=== PATIENT | female | born 1930 | race Caucasian/White ===

== ENCOUNTER 2016-08-14 10:55 | Emergency (ER) | payer MEDICARE, OTHER ==
[~2016-08-14] VITALS: Ht 152.4 cm; Wt 56.8 kg
[~2016-08-14 10:55] MED LIST: ATOR10TA66; FLUD0.1T; HYDR-4003 PO; IBUP-1827 PO; LIDO700A6 TP; OMEP20CA11; PYRI60TA
[2016-08-14 11:02] VITALS: BP 123/70; PULSE 62; RESP 15; O2SAT 98
[2016-08-14 11:16] LABS: BASOPHILS % (AUTO) 0.2 % (0-3); EOSINOPHILS % (AUTO) 1.7 % (0-5); MONOCYTES % (AUTO) 12.2 % (4-12); Mean Corpuscular Hemoglobin 30.3 pg (27.0-35.0); Mean Corpuscular Volume 91.8 fL (81-100); NEUTROPHILS % (AUTO) 52.2 % (40-74); Platelet Count 211 bil/L (150-400)
--- NOTE | 2016-08-14 11:20 | ED.REPORT ---
HPI-Chest Pain 40 and Over Date of Service August 14, 2016 ED Provider: Blayne Ortega MD A healthy 85 year old female with no history of smoking or drinking presents to the ER accompanied by her daughter due to several days of weakness and fatigue, worsening this morning upon awakening. She states that she has been ill for the past three days with frequent, watery diarrhea, but awakened today feeling markedly worse. Patient suspects that her symptoms are due to dehydration secondary to diarrhea. Daughter became concerned this morning when she went to check on the patient and noted that she was quite pale, and too weak and fatigued to get out of bed. Patient also reports diaphoresis, and intermittent mild chest heaviness with occasional episodes of pain for the past week. She denies fever, cough, and any significant cardiac history. Nursing Notes Stated Complaint: CHEST PAIN Chief Complaint: Chest Pain Nursing Notes Reviewed: Yes Allergies: Coded Allergies: Penicillins (Verified Allergy, Unknown, 10/27/15) Uncoded Allergies: PENICILLIN (Allergy, Unknown, 09/14/15) Scheduled Lidocaine (Lidoderm) 700 Mg Adh..patch 1 PATCH TP UD Scheduled PRN Hydrocodone-Acetaminophen 5-325 mg (Hydrocodone-Acetaminophen 5-325 mg) 1 Each Tablet 1 TABLET PO Q4H PRN PRN For Pain Ibuprofen (Ibuprofen) 600 Mg Tablet 600 MG PO QID PRN PRN For Pain Miscellaneous Medications Atorvastatin Calcium (Atorvastatin Calcium) 10 Mg Tablet Fludrocortisone Acetate (Fludrocortisone Acetate) 0.1 Mg Tablet Omeprazole (Omeprazole) 20 Mg Capsule. Pyridostigmine [place] (Pyridostigmine [place]) 60 Mg Tablet General Time Seen by MD: 11:17 Chief Complaint Chest pain Hx Obtained From: Patient Arrived By: Walk-in Sudden in Onset?: No Onset Occurred: 1 - 4 hours ago Symptom Duration: Since onset Location: : Substernal Quality: Heaviness Radiation: : Does not radiate Severity: Current: No pain currently Severity: Maximum: Mild Associated with: Denies: Cough, non-productive, Cough, productive, Fever Pertinent Negative: Pt denies other symptoms Similar Sx Previous: No Past Medical History Past Medical History Chronic back pain Hypotension Denies: COPD, Cancer, Congestive heart failure, Coronary artery disease, Diabetes mellitus, Stroke Past Surgical History Back surgery Family History noncontributory Smoking History Never Smoker Social History Alcohol Use: Denies alcohol use Drug Use: Denies drug use Other Social History: Good social support, Local resident Ambulatory Status Independent Review of Systems Constitutional: Reports: Fatigue, Malaise, Weakness - generalized, Denies: Fever Respiratory: Denies: Non-productive cough, Shortness of breath Cardiovascular: Reports: Chest pain GI: Reports: Diarrhea, Denies: Nausea, Vomiting Complete sys rev & neg: except as marked. Physical Exam Initial Vital Signs Vital Signs (First) Date Time Temp Pulse Resp B/P Pulse Ox O2 Delivery O2 Flow Rate FiO2 08/14/16 11:02 36.4 62 15 123/70 98 Room Air Initial VS: Reviewed Head / Eyes: Atraumatic, Normocephalic Neck: Supple, Non-tender, Full range of motion Extremities: Vascular intact, Neuro intact, No swelling, No tenderness Skin: Warm, Dry, No cyanosis Neurologic: Alert, Oriented, Nonfocal Psychiatric: Mood/affect normal, Behavior normal, Normal thought content General/Constitutional: Awake, Alert, Well appearing, Well developed, Well nourished Respiratory / Chest: Breath sounds NL, Breath sounds = bilat, No respiratory distress, No rales, No rhonchi, No wheezing, No stridor, No chest tenderness Cardiovascular: Heart rate NL, Regular rhythm, Heart sounds NL, No murmurs, Peripheral circulation NL, Pulses = bilaterally, No gross BP differential Abdomen: Soft, Non-tender, No guarding, No rebound, No distention Interpretation & Diagnostics Lab Results Interpretation Result Diagram: 08/14/16 1112 08/14/16 1112 Test 08/14/16 11:12 08/14/16 11:53 White Blood Count 6.6th/mm3 (3.8-10.1) Red Blood Count 4.66mil/mm3 (3.90-5.20) Hemoglobin 14.1g/dL (12.0-15.6) Hematocrit 42.8% (35.0-46.0) Mean Corpuscular Volume 91.8fL (81-100) Mean Corpuscular Hemoglobin 30.3pg (27.0-35.0) Mean Corpuscular Hemoglobin Concent 32.9% (32.0-37.0) Red Cell Distribution Width 13.8% (12.3-15.4) Platelet Count 211bil/L (150-400) Neutrophils (%) (Auto) 52.2% (40-74) Lymphocytes (%) (Auto) 33.7% (14-46) Monocytes (%) (Auto) 12.2% (4-12) Eosinophils (%) (Auto) 1.7% (0-5) Basophils (%) (Auto) 0.2% (0-3) D-Dimer 1.93mg/L FEU (<0.50) Sodium Level 141mEq/L (134-144) Potassium Level 4.2mEq/L (3.5-5.2) Chloride Level 103mEq/L (97-108) Carbon Dioxide Level 24mmol/L (18-29) Blood Urea Nitrogen 12mg/dL (8-27) Creatinine 0.57mg/dL (0.57-1.00) Estimat Glomerular Filtration Rate 145mL/min (>59) Glucose Level 97mg/dL (60-99) Calcium Level 9.9mg/dL (8.5-10.1) Magnesium Level 2.2mg/dL (1.6-2.6) Total Bilirubin 0.3mg/dL (0.0-1.2) Aspartate Amino Transf (AST/SGOT) 26U/L (0-50) Alanine Aminotransferase (ALT/SGPT) 16U/L (0-32) Alkaline Phosphatase 82U/L (25-165) Troponin T 0.010ug/L (0.0-0.011) Total Protein 7.6g/dL (6.4-8.4) Albumin 3.8g/dL (3.4-5.0) Urine Color Straw (YELLOW) Urine Appearance Hazy (CLEAR,HAZY) Urine pH 6.0 (5.0-8.0) Urine Specific [place] 1.005 (1.003-1.035) Urine Protein Negativemg/dL (NEG,TRACE) Urine Glucose (UA) Negativemg/dL (NEGATIVE) Urine Ketones Negativemg/dL (NEGATIVE) Urine Occult Blood Trace (NEGATIVE) Urine Nitrite Negative (NEGATIVE) Urine Bilirubin Negative (NEGATIVE) Urine Urobilinogen Normalmg/dL (NORMAL) Urine Leukocyte Esterase Negative (NEGATIVE) Urine RBC 3-10/hpf (0-2) Urine WBC 0-5/hpf (0-5) Urine Epithelial Cells Occasional/hpf (NONE-MOD) Urine Crystals None seen (NONE SEEN) Urine Bacteria None/hpf (NONE-FEW) Urine Hyaline Casts None/lpf (NONE) Urine Granular Casts None seen (NONE SEEN) Urine Waxy Casts None seen (NONE SEEN) Urine Red Blood Cell Casts None seen (NONE SEEN) Urine White Blood Cell Casts None seen (NONE SEEN) Urine Mucus None seen (None Seen) Urine Trichomonas None seen (NONE SEEN) Urine Yeast None (NONE SEEN) Urinalysis Comment None Urine Culture Reflexed Not indicated ECG Interpretation ECG Interpretation: Sinus rhythm, rate 60 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 Ill-defined nodular opacity projecting in the left lung base, technically non-specific. Recommend followup with three-month interval PA and lateral chest radiograph (or alternatively at clinical discretion, noncontrast chest CT could be immediately performed) Dictated by: Stuart Diego M.D. on 08/14/2016 at 11:47 Approved by: Stuart Diego M.D. on 08/14/2016 at 11:49 View: Portable, 1 view Interpretation / Wet Read by: Interpret - Radiologist CT Chest Interpretation IMPRESSION: No evidence of pulmonary embolism. Chronic diffuse interstitial changes. No definite focal consolidation. Dictated by: Stuart Diego M.D. on 08/14/2016 at 12:34 Approved by: Stuart Diego M.D. on 08/14/2016 at 12:42 Study type: CT pulm angiogram Interpretation / Wet Read by: Interpret - Radiologist Re-Eval/Medical Decision Source of Hx: Old records Counseled Regarding: Diagnosis, Lab results Discharge & Departure Primary Impression: Non-cardiac chest pain Additional Impression: Dehydration Disposition: Home Discharge Condition All VS Reviewed: Yes Condition: Stable Patient Instructions: Chest Pain (ED), Dehydration (ED) Additional Instructions: I think your symptoms were probably related to dehydration associated with the diarrhea you had over the past few days. No other dangerous condition is identified. Over the next few days I recommend extra oral hydration especially with electrolyte-containing fluids. If you are feeling worse or if you faint please return to the emergency department. Otherwise follow-up with your primary care provider in the next week to assure resolution of these symptoms. Referrals: Max Carr MD (PCP) Scribe Attestation Portions of this note were transcribed by Edmundo Salomon. I, Dr. Ortega, personally performed the history, physical exam and medical decision-making; I reviewed and confirmed the accuracy of the information in the transcribed note. Signed by: Jorge Rapp, 08/14/2016 at *time* copies to: Max Carr MD, Kirk H MD August 14, 2016 11:20 EDMUNDO SALOMON August 14, 2016 11:29
[2016-08-14 11:28] LABS: TROPONIN T 0.01 ug/L (0.0-0.011)
[2016-08-14 11:39] LABS: Magnesium 2.2 mg/dL (1.6-2.6)
[2016-08-14 11:40] VITALS: BP 121/56; PULSE 56; RESP 20; O2SAT 98
[2016-08-14 11:45] VITALS: BP 123/75; PULSE 97; RESP 21; O2SAT 98
[2016-08-14] MEDS ORDERED: 0.9% Sodium Chloride 1,000 ML IV ONE (11:50)
--- NOTE | 2016-08-14 11:51 | DRSVH ---
PROCEDURE: X-RAY CHEST ONE VIEW, PORTABLE ([id number]) INDICATIONS: CHEST PAIN TECHNIQUE: One view of the chest was acquired. COMPARISON: [facility], CHEST 2VW, 07/12/2014, 11:43. [facility], [facility], XR [address] 2VW, 04/09/2016, 12:28. FINDINGS: Surgical changes and devices: None. Lungs and pleura: No pleural effusions or pneumothorax. Diffuse interstitial changes appear grossly stable. Ill-defined 1 cm nodular opacity projecting in the left lung base. It is unclear if this is p resent on a prior remote study dated 07/12/14 Mediastinum: Mediastinal contours appear normal. Heart size is normal. Bones and chest wall: No suspicious bony lesions. Overlying soft tissues appear unremarkable. Later al curvature of the spine IMPRESSION: No acute disease. Ill-defined nodular opacity projecting in the left lung base, technically non-speci fic. Recommend followup with three-month interval PA and lateral chest radiograph (or alternatively a t clinical discretion, noncontrast chest CT could be immediately performed) Dictated by: Stuart Diego M.D. on 08/14/2016 at 11:47 Approved by: Stuart Diego M.D. on 08/14/2016 at 11:49
[2016-08-14 12:16] LABS: APPEARANCE,URINE HAZY (CLEAR,HAZY); COLOR,URINE STRAW (YELLOW); OCCULT BLOOD,URINE TRACE (NEGATIVE); UROBILINOGEN,URINE NORMAL (NORMAL)
--- NOTE | 2016-08-14 12:43 | DRSVH ---
PROCEDURE: CT ANGIO CHEST PULMONARY EMBOLISM ([id number]) INDICATIONS: chest pain TECHNIQUE: After the administration of intravenous contrast, 2 mm thick sections acquired from the pulmonary api jose to the posterior costophrenic angles. 3-dimensional maximum intensity projection (MIP) coronal a nd sagittal reformats were then acquired through the thorax. For radiation dose reduction, the follo wing was used: automated exposure control, adjustment of mA and/or kV according to patient size. COMPARISON: [facility], CR, XR CHEST 2VW, 10/24/2015, 8:56. FINDINGS: Image quality: Excellent. Pulmonary arteries: Pulmonary arteries are normal in size, and demonstrate no intraluminal filling d efects to suggest central pulmonary embolism. Lungs and pleura: There is diffuse subpleural reticulation, scarring and interstitial changes. No pne umothorax or pleural effusion is seen. No definite focal consolidation identified. Central airways ap pear grossly patent. Mediastinum: Heart size is mildly enlarged, without pericardial effusion. No mediastinal or hilar a denopathy. Thoracic aorta is normal in caliber and enhancement. Esophagus is normal in caliber, wit hout hiatal hernia. Bones and chest wall: No suspicious bony lesions. Unchanged lower thoracic compression fracture sinc e prior radiograph dated 10/24/15. Thyroid gland is grossly unremarkable. No axillary or supraclavicu lar adenopathy. Abdomen: Visualized upper abdominal solid organs appear normal in the early arterial phase of enhanc ement. IMPRESSION: No evidence of pulmonary embolism. Chronic diffuse interstitial changes. No definite focal consolidation. Dictated by: Stuart Diego M.D. on 08/14/2016 at 12:34 Approved by: Stuart Diego M.D. on 08/14/2016 at 12:42
[2016-08-14 13:00] VITALS: BP 142/88; PULSE 53; RESP 17; O2SAT 100
[2016-08-14 13:06] VITALS: BP 144/88; PULSE 61; RESP 16; O2SAT 100
[2016-08-14 14:35] VITALS: BP 144/88; PULSE 61; RESP 16; O2SAT 100
== END 2016-08-14 14:36 | disposition home or self-care (01) ==
LOC: SED 10:55
DX: R07.89 Other chest pain (principal); E86.0 Dehydration; Z88.0 Allergy status to penicillin
CPT/HCPCS: 36415; 71010; 71275; 80053; 81000; 83735; 84484; 85025; 85378; 93005; 96360; 99285; J7030; Q9967

== ENCOUNTER 2016-12-17 09:00 | Emergency (ER) | payer MEDICARE, OTHER ==
[~2016-12-17] VITALS: Ht 152.4 cm; Wt 58.2 kg
[~2016-12-17 09:00] MED LIST changes: +LIDO700A10 TP; -LIDO700A6 TP
[2016-12-17 09:11] VITALS: BP 95/72; PULSE 66; RESP 16; O2SAT 98
[2016-12-17] MEDS ORDERED: FLUD0.1T PO (09:20)
[2016-12-17] MEDS ORDERED: SUMA25TA3 PO (09:20)
[2016-12-17] MEDS ORDERED: TIOT18CA3 IH (09:20)
[2016-12-17] MEDS ORDERED: PYRI60TA PO (09:20)
[2016-12-17] MEDS ORDERED: ASPI-973 PO (09:20)
[2016-12-17] MEDS ORDERED: ATRV10T PO (09:20)
[2016-12-17] MEDS ORDERED: RANI150C4 PO (09:20)
--- NOTE | 2016-12-17 09:27 | ED.REPORT ---
HPI-Chest Pain 40 and Over Date of Service Dec 17, 2016 ED Provider: Octavio Robertson DO Patient is an 86 year old female with a history of hypotension who presents to the ED complaining of intermittent sharp chest pain episodes over the past 6 months. The episodes have been worsening over the past month and today the patient began to feel lightheaded, short of breath and has a headache. The patient also reports swelling in her legs and intermittent chest palpitations. She states that she has a constant heaviness on her chest that makes her feel as though she needs to take a deep breath. Patient denies abdominal pain. Nursing Notes Stated Complaint: RAPID HEART RATE Chief Complaint: Dysrhythmia/Cardiac Nursing Notes Reviewed: Yes Allergies: Coded Allergies: Penicillins (Verified Allergy, Unknown, 12/17/16) Uncoded Allergies: PENICILLIN (Allergy, Unknown, 09/14/15) Scheduled Aspirin (Aspirin) 81 Mg Tablet 81 MG PO DAILY Atorvastatin (Lipitor) 10 Mg Tab 10 MG PO DAILY Fludrocortisone Acetate (Fludrocortisone Acetate) 0.1 Mg Tablet 0.1 MG PO QAM Pyridostigmine [place] (Pyridostigmine [place]) 60 Mg Tablet 60 MG PO QID Ranitidine (Ranitidine) 150 Mg Capsule 150 MG PO BID Tiotropium [place] (Spiriva) 18 Mcg Cap.w.dev 18 MCG IH DAILY Scheduled PRN Sumatriptan Succinate (Sumatriptan Succinate) 25 Mg Tablet 25 MG PO DAILY PRN PRN For Headache General Time Seen by MD: 09:23 Chief Complaint Chest pain Hx Obtained From: Patient Arrived By: Walk-in Sudden in Onset?: Yes Onset Occurred: 1 - 4 hours ago Symptom Duration: Since onset Location: : Substernal Quality: Heaviness, Painful, Sharp Severity: Current: No pain currently Severity: Maximum: Moderate Recent Healthcare: Recent doctor visit Similar Sx Previous: No Past Medical History Past Medical History Chronic back pain Hypotension Past Surgical History Back surgery Family History noncontributory Smoking History Never Smoker Social History Alcohol Use: Denies alcohol use Drug Use: Denies drug use Other Social History: Good social support, Local resident Ambulatory Status Independent Review of Systems Respiratory: Reports: Shortness of breath Cardiovascular: Reports: Chest pain, Palpitations GI: Denies: Abdominal pain Neurologic: Reports: Headache, Lightheaded Complete sys rev & neg: except as marked. Physical Exam Initial Vital Signs Vital Signs (First) Date Time Temp Pulse Resp B/P Pulse Ox O2 Delivery O2 Flow Rate FiO2 12/17/16 09:11 36.7 66 16 95/72 98 Room Air Initial VS: Reviewed General/Constitutional: Awake, Alert Respiratory / Chest: Atraumatic, Breath sounds NL, Breath sounds = bilat, No respiratory distress Cardiovascular: Heart rate NL, Regular rhythm, Heart sounds NL Abdomen: Atraumatic, Soft, Non-tender Neck: Atraumatic, Supple Neck Vascular: Positive: JVD mild Lower Extremity / Pelvis / MS: Atraumatic mild bilateral lower extremity edema Skin: Atraumatic, Color NL, No rash, Warm, Dry Neurologic: Oriented X3, Speech NL Head / Eyes: Atraumatic, Normocephalic Interpretation & Diagnostics Lab Results Interpretation Result Diagram: 12/17/16 1010 12/17/16 1010 Test 12/17/16 10:10 12/17/16 12:08 White Blood Count 7.0th/mm3 (3.8-10.1) Red Blood Count 4.58mil/mm3 (3.90-5.20) Hemoglobin 13.6g/dL (12.0-15.6) Hematocrit 41.3% (35.0-46.0) Mean Corpuscular Volume 90.2fL (81-100) Mean Corpuscular Hemoglobin 29.7pg (27.0-35.0) Mean Corpuscular Hemoglobin Concent 32.9% (32.0-37.0) Red Cell Distribution Width 13.4% (12.3-15.4) Platelet Count 203bil/L (150-400) Neutrophils (%) (Auto) 50.4% (40-74) Lymphocytes (%) (Auto) 27.3% (14-46) Monocytes (%) (Auto) 18.4% (4-12) Eosinophils (%) (Auto) 3.4% (0-5) Basophils (%) (Auto) 0.4% (0-3) D-Dimer 1.48mg/L FEU (<0.50) Sodium Level 142mEq/L (134-144) Potassium Level 4.4mEq/L (3.5-5.2) Chloride Level 103mEq/L (97-108) Carbon Dioxide Level 26mmol/L (18-29) Blood Urea Nitrogen 10mg/dL (8-27) Creatinine 0.57mg/dL (0.57-1.00) Estimat Glomerular Filtration Rate 145mL/min (>59) Glucose Level 96mg/dL (60-99) Calcium Level 9.9mg/dL (8.5-10.1) Magnesium Level 2.4mg/dL (1.6-2.6) Total Bilirubin 0.3mg/dL (0.0-1.2) Aspartate Amino Transf (AST/SGOT) 22U/L (0-50) Alanine Aminotransferase (ALT/SGPT) 14U/L (0-32) Alkaline Phosphatase 76U/L (25-165) Troponin T 0.010ug/L (0.0-0.011) Pro-B-Type Natriuretic Peptide 120.7pg/mL (0-738) Total Protein 7.4g/dL (6.4-8.4) Albumin 3.7g/dL (3.4-5.0) Hold Yen Top Tube Received (Received) Urine Color Straw (YELLOW) Urine Appearance Hazy (CLEAR,HAZY) Urine pH 7.0 (5.0-8.0) Urine Specific [place] 1.005 (1.003-1.035) Urine Protein Negativemg/dL (NEG,TRACE) Urine Glucose (UA) Negativemg/dL (NEGATIVE) Urine Ketones Negativemg/dL (NEGATIVE) Urine Occult Blood Negative (NEGATIVE) Urine Nitrite Negative (NEGATIVE) Urine Bilirubin Negative (NEGATIVE) Urine Urobilinogen Normalmg/dL (NORMAL) Urine Leukocyte Esterase Negative (NEGATIVE) Urine RBC 0-2/hpf (0-2) Urine WBC 0-5/hpf (0-5) Urine Epithelial Cells Occasional/hpf (NONE-MOD) Urine Crystals None seen (NONE SEEN) Urine Bacteria None/hpf (NONE-FEW) Urine Hyaline Casts None/lpf (NONE) Urine Granular Casts None seen (NONE SEEN) Urine Waxy Casts None seen (NONE SEEN) Urine Red Blood Cell Casts None seen (NONE SEEN) Urine White Blood Cell Casts None seen (NONE SEEN) Urine Mucus None seen (None Seen) Urine Trichomonas None seen (NONE SEEN) Urine Yeast None (NONE SEEN) Urinalysis Comment None Urine Culture Reflexed Not indicated ECG Interpretation Time: 12:03 Interpreted by: ED physician Normal ECG Interpretation: Normal rate (62), Normal sinus rhythm X-Ray Chest Interpretation Chest Xray Interpretation: IMPRESSION: Chronic mild interstitial prominence previously present, no acute disease. Source of chest pain is not seen. Dictated by: Marbin Beaulieu M.D. on 12/17/2016 at 10:12 Approved by: Marbin Beaulieu M.D. on 12/17/2016 at 10:17 Interpretation / Wet Read by: Interpret - Radiologist CT Chest Interpretation IMPRESSION: 1. No evidence of central pulmonary embolism. 2. 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 3. Enlarged mediastinal and hilar lymph nodes are nonspecific and may represent reactive changes secondary to interstitial lung disease but appear increased from the prior study. Followup is recommended to demonstrate stability. 4. Chronic interstitial changes redemonstrated bilaterally. Dictated by: Agustin Tinsley M.D. on 12/17/2016 at 13:47 Approved by: Agustin Tinsley M.D. on 12/17/2016 at 14:14 Study type: CT pulm angiogram Interpretation / Wet Read by: Interpret - Radiologist Re-Eval/Medical Decision Med Decision/Clinical Course Chest pain is transient lasting only a second or 2, does not sound typical of acute coronary syndrome, no evidence of heart failure, pneumonia, pulmonary embolism or acute IL. Patient is ambulatory at her normal baseline. No evidence of any life-threatening pathology. Prior visits are reviewed as well. Patient is agreeable to follow up with her primary care doctor in the next few days. Return precautions given. Time of Eval: 14:17 Re-Evaluation/Progress Note: Reviewed X-ray, labs and CT results. Plan for discharge. Patient understands and agrees to plan. All questions were addressed. Counseled Regarding: Diagnosis, Lab results, Need for follow-up, When/why to return to ED Discharge & Departure Primary Impression: Chest pain Chest pain type: unspecified Qualified Code: R07.9 - Chest pain, unspecified Additional Impression: Shortness of breath Disposition: Home Discharge Condition All VS Reviewed: Yes Condition: Stable Patient Instructions: Chest Pain (ED) Additional Instructions: Your chest X-ray, CT and labs were normal and reassuring. An immediately dangerous cause for your symptoms was not identified at this time. Follow up with your primary care physician next week. Return to the emergency department if you develop any new, concerning or worsening symptoms. Referrals: Max Carr MD (PCP) Scribe Attestation Portions of this note were transcribed by Ibeth Miller. I, Dr. Khadar Corcoran personally performed the history, physical exam and medical decision-making; I reviewed and confirmed the accuracy of the information in the transcribed note. Signed by: Jorge Ryder, 12/17/16 copies to: Max Carr MD, Timothy S DO Dec 17, 2016 09:27 Cari Miller Dec 17, 2016 09:56
[2016-12-17] MEDS ORDERED: 0.9% Sodium Chloride 500 ML IV ONE (09:50)
--- NOTE | 2016-12-17 10:20 | DRSVH ---
PROCEDURE: X-RAY CHEST ONE VIEW, PORTABLE ([id number]) INDICATIONS: chest pain TECHNIQUE: One view of the chest was acquired. COMPARISON: [facility], CT, CT CHEST WO CON, 11/19/2016, 12:36. [facility], CR, XR CHEST 1VW (PORTABLE), 08/14/2016, 11:18. [facility], CR, XR CHEST 2VW, 04/09/2016, 12:28. FINDINGS: Surgical changes and devices: None. Lungs and pleura: No pleural effusions or pneumothorax. Lungs are clear. Mediastinum: Mediastinal contours appear normal. Heart size is normal, and again noted is a small r adiodensity at the left ventricular margin border of the heart, seen by CT scanning 11/19/16 to repres ent a prominence of focal fat at that site. Bones and chest wall: No suspicious bony lesions. Overlying soft tissues appear unremarkable. IMPRESSION: Chronic mild interstitial prominence previously present, no acute disease. Source of phong st pain is not seen. Dictated by: Marbin Beaulieu M.D. on 12/17/2016 at 10:12 Approved by: Marbin Beaulieu M.D. on 12/17/2016 at 10:17
[2016-12-17 10:26] LABS: BASOPHILS % (AUTO) 0.4 % (0-3); EOSINOPHILS % (AUTO) 3.4 % (0-5); MONOCYTES % (AUTO) 18.4 % (4-12); Mean Corpuscular Hemoglobin 29.7 pg (27.0-35.0); Mean Corpuscular Volume 90.2 fL (81-100); NEUTROPHILS % (AUTO) 50.4 % (40-74); Platelet Count 203 bil/L (150-400)
[2016-12-17 11:34] LABS: Magnesium 2.4 mg/dL (1.6-2.6); TROPONIN T 0.01 ug/L (0.0-0.011)
[2016-12-17 12:05] VITALS: BP 146/81; PULSE 64; RESP 16; O2SAT 98
[2016-12-17 12:54] LABS: APPEARANCE,URINE HAZY (CLEAR,HAZY); COLOR,URINE STRAW (YELLOW); OCCULT BLOOD,URINE NEGATIVE (NEGATIVE); UROBILINOGEN,URINE NORMAL (NORMAL)
--- NOTE | 2016-12-17 14:16 | DRSVH ---
PROCEDURE: CT ANGIO CHEST PULMONARY EMBOLISM ([id number]) INDICATIONS: chest pain elevated ddimer TECHNIQUE: After the administration of intravenous contrast, 2 mm thick sections acquired from the pulmonary api jose to the posterior costophrenic angles. 3-dimensional maximum intensity projection (MIP) coronal a nd sagittal reformats were then acquired through the thorax. For radiation dose reduction, the follo wing was used: automated exposure control, adjustment of mA and/or kV according to patient size. COMPARISON: [facility], CT, CT CHEST WO CON, 11/19/2016, 12:36. [facility], CT, CT ANGIO CHEST PE, 08/14/2016, 12:03. FINDINGS: Image quality: There is motion artifact limiting evaluation. Pulmonary arteries: Pulmonary arteries are normal in size, and demonstrate no definite intraluminal filling defects to suggest central pulmonary embolism. Evaluation of distal subsegmental branches is slightly limited due to motion artifact. Lungs and pleura: There are chronic interstitial changes redemonstrated bilaterally with peripheral subpleural reticular interstitial opacities and linear scarring. There are some bilateral groundglas s opacities. Evaluation is limited due to motion artifact. No focal consolidation. No pleural effus ions or pneumothorax. Central and peripheral airways are patent. Mediastinum: Heart size is normal, without pericardial effusion. There are multiple enlarged medias tinal and hilar lymph nodes including a subcarinal node measuring up to 1.2 cm and the right hilar no andres measuring up to 1.4 cm. There is aneurysmal dilatation of the thoracic aorta, with the ascending aorta measuring up to 4.1 cm, and the aortic arch measuring up to 3.0 cm, the proximal descending ao rta measuring up to 3.2 cm, and the distal descending aorta at the diaphragmatic hiatus measuring up to 2.8 cm. The visualized suprarenal abdominal aorta is mildly dilated, measuring up to 2.1 cm. Eso phagus is normal in caliber, with a small hiatal hernia. Bones and chest wall: No suspicious bony lesions. There are mild superior endplate compression defo rmities within the lower thoracic spine which appear unchanged. Thyroid gland demonstrates a possible small nodule along the posterior right thyroid lobe with evaluation limited due to motion artifact. No axillary or supraclavicular adenopathy. Abdomen: Visualized upper abdominal solid organs appear normal in the early arterial phase of enhanc ement. IMPRESSION: 1. No evidence of central pulmonary embolism. 2. 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 3. Enlarged mediastinal and hilar lymph nodes are nonspecific and may represent reactive changes sec ondary to interstitial lung disease but appear increased from the prior study. Followup is recommend ed to demonstrate stability. 4. Chronic interstitial changes redemonstrated bilaterally. Dictated by: Agustin Tinsley M.D. on 12/17/2016 at 13:47 Approved by: Agustin Tinsley M.D. on 12/17/2016 at 14:14
[2016-12-17 14:50] VITALS: BP 9/85; PULSE 68; RESP 14; O2SAT 96
== END 2016-12-17 14:51 | disposition home or self-care (01) ==
LOC: SED 09:00
DX: R07.2 Precordial pain (principal); R06.02 Shortness of breath; R42 Dizziness and giddiness; R51 Headache; M79.89 Other specified soft tissue disorders; R00.2 Palpitations; Z98.890 Other specified postprocedural states; Z79.82 Long term (current) use of aspirin; Z88.0 Allergy status to penicillin
CPT/HCPCS: 36415; 71010; 71275; 80053; 81000; 83735; 83880; 84484; 85025; 85378; 93005; 96360; 99285; J7040; Q9967